=== PATIENT | female | born 1955 | race Hispanic/Latino ===

== ENCOUNTER 2016-12-07 21:37 | Emergency (ER) | payer MEDICARE ==
[2016-12-07 22:30] LABS: Basophils % (Auto) 0.8 % (0.0-1.8); Hematocrit 38.9 % (30.3-42.9); Hemoglobin 13.1 gm/dl (10.1-14.3); Mean Corpuscular HGB Conc 34 % (30-34); Mean Corpuscular Hemoglobin 29 pg (28-32); Mean Corpuscular Volume 85 fl (79-97); Platelet Count 169 K/mm3 (140-440); Red Blood Count 4.57 M/mm3 (3.65-5.03); Red Cell Distribution Width 13.3 % (13.2-15.2); White Blood Count 3.3 K/mm3 (4.5-11.0)
[2016-12-07 22:47] LABS: Anion Gap 17 mmol/L; BUN/Creatinine Ratio 16.66; Blood Urea Nitrogen 10 mg/dL (7-17); Calcium 8.8 mg/dL (8.4-10.2); Carbon Dioxide 25 mmol/L (22-30); Chloride 84.6 mmol/L (98-107); Glucose 94 mg/dL (65-100); Potassium 4.6 mmol/L (3.6-5.0); Sodium 122 mmol/L (137-145)
[2016-12-07 23:02] LABS: Urine Drugs of Abuse Note Disclamer
[2016-12-07 23:10] LABS: Bilirubin,Urine NEG (Negative); Blood,Urine MOD (Negative); Ketones,Urine NEG (Negative); Leukocyte Esterase,Urine NEG (Negative); Mucus,Urine FEW /HPF; Nitrite,Urine NEG (Negative); Protein,Urine <15 mg/dL mg/dL (Negative); Urobilinogen,Urine < 2.0 mg/dL (<2.0)
[2016-12-08] MEDS ORDERED: NACL 0.9% 1000 ML 1,000 ML ONE (01:05)
[2016-12-08] MEDS ORDERED: NACL 0.9% 1000 ML 1,000 ML IV ONE ×2 (01:13→03:12)
--- NOTE | 2016-12-08 03:09 | Emergency Department Report ---
HPI - General Chief Complaint: Psych Time Seen by Provider: 12/08/16 00:49 - HPI HPI: The patient is a 61-year-old female who presents for evaluation of mental health. The patient reports 1 day of constant severe sadness and depression. The patient states that her symptoms were exacerbated due to news that her best friend and next-door neighbor is leaving her penitentiary. The patient denies having a plan to commit suicide. The patient denies fever, headache, unexplained weight loss or weight gain, heat or cold intolerance, skin, hair, or nail changes, neuro deficits, homicidal ideations, or auditory or visual hallucinations. ED Past Medical Hx - Past Medical History Previous Medical History?: Yes Hx Seizures: Yes Hx Psychiatric Treatment: Yes (depression & schizo) Additional medical history: hyperglycemia - Surgical History Past Surgical History?: No - Social History Smoking Status: Never Smoker Substance Use Type: None - Medications Home Medications: Home Medications Medication Instructions Recorded Confirmed Last Taken Type ARIPiprazole [Abilify TAB] 20 mg PO DAILY 07/28/15 12/07/16 10/20/16 History Eslicarbazepine Acetate [Aptiom] 400 mg PO DAILY 07/28/15 12/07/16 10/20/16 History PARoxetine (NF) [Paxil (Nf)] 40 mg PO DAILY 07/28/15 12/07/16 10/20/16 History hydrOXYZINE PAMOATE [hydrOXYzine 25 mg PO DAILY 07/28/15 12/07/16 10/20/16 History Pamoate] lamoTRIgine [LaMICtal Xr] 100 mg PO QDAY 07/28/15 12/07/16 10/20/16 History traZODone [Desyrel] 100 mg PO QHS 07/28/15 12/07/16 10/20/16 History Folic Acid 0.8 mg PO DAILY #0 10/21/16 12/07/16 10/20/16 History Ergocalciferol(Vitamin D2)(Nf) 50,000 unit PO DAILY 12/07/16 12/07/16 Unknown History [Vitamin D (Nf)] Famotidine [Pepcid] 40 mg PO DAILY 12/07/16 12/07/16 Unknown History Levocetirizine Dihydrochloride 5 mg PO DAILY 12/07/16 12/07/16 Unknown History [Xyzal] Omeprazole 40 mg PO DAILY 12/07/16 12/07/16 Unknown History Vit B12/FA/Pyridoxine HCl/Aa15 1 each PO DAILY 12/07/16 12/07/16 Unknown History [Glycotrol Capsule] levETIRAcetam [Keppra TAB] 1,000 mg PO DAILY 12/07/16 12/07/16 Unknown History medroxyPROGESTERone ACETATE 2.5 mg PO QDAY 12/07/16 12/07/16 Unknown History [Provera] ED Review of Systems ROS: Stated complaint: SUICIDAL THOUGHTS/MH EVAL Other details as noted in HPI Constitutional: denies: fever ENT: denies: throat or neck pain Respiratory: denies: cough, shortness of breath Cardiovascular: denies: chest pain Endocrine: denies unexplained weight loss or gain Gastrointestinal: denies: abdominal pain, nausea Genitourinary: denies: dysuria Musculoskeletal: denies: leg swelling Skin: denies: rash Neurological: denies: headache Hematological/Lymphatic: denies: easy bleeding or easy bruising Psych: reports sadness, SI Physical Exam - Physical Exam Vital Signs: Vital Signs 12/07/16 12/07/16 12/07/16 21:50 23:00 23:06 Temperature 98.6 F 98.6 F Pulse Rate 57 L 57 L Respiratory 18 20 20 Rate Blood Pressure 117/65 Blood Pressure 117/65 [Right] O2 Sat by Pulse 97 97 97 Oximetry Physical Exam: General: well-nourished, well-developed, no acute distress Head: Normocephalic, atraumatic Eyes: normal sclera ENT: Mucous membranes are pale and dry Neck: trachea midline, neck supple, No neck stiffness, no cervical adenopathy Respiratory: Breath sounds equal bilaterally, no wheezing, rales, or rhonchi Cardio: S1 and S2 present, no murmurs, rubs, gallops, capillary refill is delayed Abdomen: Normoactive bowel sounds, soft abdomen, no rigidity, no guarding or rebound tenderness Musc: No pitting edema Skin: No rash Neuro: no facial drooping, normal speech Psych: flat affect, depressed mood, positive suicidal ideations ED Course Vital Signs 12/07/16 12/07/16 12/07/16 21:50 23:00 23:06 Temperature 98.6 F 98.6 F Pulse Rate 57 L 57 L Respiratory 18 20 20 Rate Blood Pressure 117/65 Blood Pressure 117/65 [Right] O2 Sat by Pulse 97 97 97 Oximetry ED Medical Decision Making - Lab Data Result diagrams: 12/07/16 22:16 12/07/16 22:16 - Medical Decision Making The patient was seen and examined by myself. The patient is placed on a high school art [employer] and continuous pulse ox. On initial evaluation, the patient was found to be in no distress. IV access is established and the patient is given 1 L normal saline fluid bolus for treatment of dehydration. Labs are obtained. Lab results revealed hyponatremia, sodium 122, and otherwise labs are grossly unremarkable. The patient is given a second liter normal saline fluid bolus for treatment of hyponatremia. The patient is medically clear. Mental health is consulted. Mental health evaluates the patient and agrees that the patient is at risk of harm to self. A 1013 is completed. The patient will be admitted to a psychiatric facility once bed placement is obtained. Critical care attestation.: If time is entered above; I have spent that time in minutes in the direct care of this critically ill patient, excluding procedure time. ED Disposition Clinical Impression: Dehydration, Suicidal ideation, Hyponatremia Depressed Qualifiers: Depression Type: major depressive disorder Major depression recurrence: single episode Active/Remission status: currently active Major depression episode severity: severe Psychotic features: without psychotic features Qualified Code(s ): F32.2 - Major depressive disorder, single episode, severe without psychotic features Disposition: DC/TX PSY HOSP/PSY UNIT Is pt being admited?: No Does the pt Need Aspirin: No Condition: Fair Referrals: PRIMARY CARE [Primary Care Provider] - 3-5 Days Time of Disposition: 02:10
[2016-12-08] MEDS ORDERED: ALUM-MAG HYDROX-SIMETH 200-200-20MG/5ML PO PRN (03:35)
[2016-12-08] MEDS ORDERED: TYLENOL PO PRN (03:35)
[2016-12-08] MEDS ORDERED: MILK OF MAGNESIA PO PRN (03:35)
[2016-12-08] MEDS ORDERED: PYRIDOXINE HCL PO SCH (10:00)
[2016-12-08] MEDS ORDERED: VIT B12 PO SCH (10:00)
[2016-12-08] MEDS ORDERED: NON-FORMULARY (Omeprazole [Omeprazole] 40 MG) PO SCH (10:00)
[2016-12-08] MEDS ORDERED: PEPCID PO SCH (10:00)
[2016-12-08] MEDS ORDERED: LAMOTRIGINE 100 MG PO SCH (10:00)
[2016-12-08] MEDS ORDERED: [UNRECOGNIZED DRUG - OTHER] PO SCH (10:00)
[2016-12-08] MEDS ORDERED: ERGOCALCIFEROL 50000 UNIT PO SCH (10:00)
[2016-12-08] MEDS ORDERED: FOLIC ACID 0.8 MG PO SCH (10:00)
[2016-12-08] MEDS: KEPPRA PO SCH (10:21)
[2016-12-08] MEDS: ABILIFY PO SCH (12:25)
--- NOTE | 2016-12-08 13:50 | Consultation ---
History of Present Illness - Reason for Consult Consult date: 12/08/16 Reason for consult: Mental Health Evaluation Requesting physician: VERONICA SALCIDO - Chief Complaint Chief complaint: "I hear the voices" - History of Present Psychiatric Illness The patient is a 61-year-old female who presents for evaluation of mental health. She patient reports 1 day of constant severe sadness and depression. Today patient is calm, cooperative with a circumstantial thought process. She states she is sad because a friend at her personal senior living was moved. She stated the decision to move her friend made her depressed and suicidal with a plan to use a "knife." She stated that she have had SI's in the past. She tells me that this friend is special to her. Per the patient the voices tell her to "kill myself." Also, patient states that she see shadows currently. She denies HI's at this time. Patient was observed by personal senior living staff banging her head against the wall. She is currently on a gurney. She denies recreational drug use or consumption of alcohol (Etoh). She denies a poor appetite, but states having sleep disturbance. Medications and Allergies Allergies Allergy/AdvReac Type Severity Reaction Status Date / Time Penicillins Allergy Vomiting Verified 07/28/15 20:10 Home Medications Medication Instructions Recorded Confirmed Last Taken Type ARIPiprazole [Abilify TAB] 20 mg PO DAILY 07/28/15 12/07/16 10/20/16 History Eslicarbazepine Acetate [Aptiom] 400 mg PO DAILY 07/28/15 12/07/16 10/20/16 History PARoxetine (NF) [Paxil (Nf)] 40 mg PO DAILY 07/28/15 12/07/16 10/20/16 History hydrOXYZINE PAMOATE [hydrOXYzine 25 mg PO DAILY 07/28/15 12/07/16 10/20/16 History Pamoate] lamoTRIgine [LaMICtal Xr] 100 mg PO QDAY 07/28/15 12/07/16 10/20/16 History traZODone [Desyrel] 100 mg PO QHS 07/28/15 12/07/16 10/20/16 History Folic Acid 0.8 mg PO DAILY #0 10/21/16 12/07/16 10/20/16 History Ergocalciferol(Vitamin D2)(Nf) 50,000 unit PO DAILY 12/07/16 12/07/16 Unknown History [Vitamin D (Nf)] Famotidine [Pepcid] 40 mg PO DAILY 12/07/16 12/07/16 Unknown History Levocetirizine Dihydrochloride 5 mg PO DAILY 12/07/16 12/07/16 Unknown History [Xyzal] Omeprazole 40 mg PO DAILY 12/07/16 12/07/16 Unknown History Vit B12/FA/Pyridoxine HCl/Aa15 1 each PO DAILY 12/07/16 12/07/16 Unknown History [Glycotrol Capsule] levETIRAcetam [Keppra TAB] 1,000 mg PO DAILY 12/07/16 12/07/16 Unknown History medroxyPROGESTERone ACETATE 2.5 mg PO QDAY 12/07/16 12/07/16 Unknown History [Provera] Active Meds: Active Medications Acetaminophen (Tylenol) 650 mg PO Q4HR PRN PRN Reason: Pain MILD(1-3)/Fever >100.5/MARTINEZ Al Hydrox/Mg Hydrox/Simethicone (Alum-Mag Hydrox-Simeth [id number]/5ml) 30 ml PO Q4HR PRN PRN Reason: Indigestion Aripiprazole (Abilify) 20 mg PO DAILY [facility] Last Admin: 12/08/16 12:25 Dose: 20 mg Ergocalciferol (Vitamin D2) 50,000 unit PO [place] [facility] Lamotrigine (Lamictal) 100 mg PO QHS [facility] Levetiracetam (Keppra) 1,000 mg PO DAILY [facility] Last Admin: 12/08/16 10:21 Dose: 1,000 mg Magnesium Hydroxide (Milk Of Magnesia) 30 ml PO Q12HR PRN PRN Reason: Constipation Pantoprazole Sodium (Protonix) 40 mg PO DAILY [facility] Mental Status Exam - Vital signs Last Vital Signs Temp 98.0 F 12/08/16 09:16 Pulse 53 L 12/08/16 09:16 Resp 18 12/08/16 09:17 BP 105/59 12/08/16 09:16 Pulse Ox 99 12/08/16 09:16 - Exam Narrative exam: ROS (+) psychosis MSE: Appearance: calm, cooperative Behavior: good eye contact, irritable Speech: regular rate and tone Mood: "I am not sure" Affect: flat Thought Process: circumstantial Thought Content: denies HI's Motor Activity: sitting in bed Cognition: A/Ox3 Insight: poor Judgment: poor Results Result Diagrams: 12/07/16 22:16 12/07/16 22:16 Abnormal lab results 12/07/16 12/07/16 Range/Units 22:16 22:16 WBC 3.3 L (4.5-11.0) K/mm3 Edwards % (Auto) 10.4 H (0.0-7.3) % Lymph # 1.1 L (1.2-5.4) K/mm3 Sodium 122 L (137-145) mmol/L Chloride 84.6 L (98-107) mmol/L Creatinine 0.6 L (0.7-1.2) mg/dL All other labs normal. Assessment and Plan Assessment and plan: Impression: Unspecified Mood DO with psychotic features. The patient is a 61- year-old female who presents for evaluation of mental health. The patient reports 1 day of constant severe sadness and depression. Today patient is calm, cooperative with a circumstantial thought process. She states she is sad because a friend at her personal senior living was moved. She stated the decision to move her friend made her depressed and suicidal with a plan to use a "knife. " Per the patient the voices tell her to "kill myself." Also, patient states that she see shadows currently. She denies HI's at this time. DD: R/O Bipolar, Adjustment DO with disturbance conduct Recommendation/Plan: Continue 1013 with placement with inpatient psy services. Start Lamictal 25 mg PO HS for mood and Trazodone 50 mg PO HS for depression/ sleep. Discussed possible rash side effect reference Lamictal and possible suicidality and medication induced huber from antidepressants.
[2016-12-08] MEDS ORDERED: LaMICtal PO SCH ×2 (22:00)
[2016-12-08] MEDS ORDERED: DESYREL PO SCH (22:00)
[2016-12-08] MEDS: PROTONIX PO SCH (22:26)
[2016-12-09] MEDS: ABILIFY PO SCH (10:23)
[2016-12-09] MEDS: KEPPRA PO SCH (10:23)
[2016-12-09] MEDS: PROTONIX PO SCH (10:23)
--- NOTE | 2016-12-09 15:23 | Progress Note ---
Subjective - Reason for Consult Consult date: 12/09/16 Reason for consult: psychiatric follow up - Chief Complaint Chief complaint: "I want to go home." The patient is a 61-year-old female who presents for evaluation of mental health. Today patient is calm, cooperative with a circumstantial thought process. She states she was sad because a friend at her personal jail was moved. Now that she's had time to think about it she realizes that she does not want to hurt herself and was saying things impulsively. She realizes she can see her friend who is [address]. She denies suicidal ideation, homicidal ideation, auditory or visual hallucinations. Mental Status Exam - Vital signs Last Vital Signs Temp 97.6 F 12/09/16 09:11 Pulse 66 12/09/16 09:11 Resp 16 12/09/16 09:11 BP 100/59 12/09/16 09:11 Pulse Ox 100 12/09/16 09:11 - Exam Orientation: time, place, person Affect: normal Mood: anxious Thought content: other (no SI, no HI) Thought Process: Intact Perceptions: none Speech: normal rate and pattern Concentration: focused Motor activity: normal Level of consciousness: alert Memory: Intact Sleep Symptoms: None Interaction: cooperative, pleasant Assessment and Plan Impression: Bipolar disorder with psychotic features. The patient is a 61-year- old female who presents for evaluation of mental health. The patient reports 1 day of constant severe sadness and depression. She reports the sadness has resolved. Today patient is calm, cooperative, and focused on going home. She denies AVH, SI, or HI, at this time Recommendation/Plan: Continue 1013 with placement with inpatient psy services. Continue Lamictal 25 mg PO HS for mood and Trazodone 50 mg PO HS for depression/ sleep.
[2016-12-09 20:43] VITALS: BP 91/62
[2016-12-13] MEDS ORDERED: VITAMIN D2 PO SCH (10:00)
== END 2016-12-09 21:50 ==
LOC: ED 21:37 → EEVIPCON 21:37 → ED 12-09 21:50
DX: F32.2 Major depressive disorder, single episode, severe without psychotic features (principal); E86.0 Dehydration; R45.851 Suicidal ideations; E87.1 Hypo-osmolality and hyponatremia; R56.9 Unspecified convulsions; F20.9 Schizophrenia, unspecified
CPT/HCPCS: 36415; 80048; 80307; 81001; 85025; 96360; 96361; 99285; G0480; J7030; 80320

== ENCOUNTER 2016-12-14 22:23 | Emergency (ER) | payer MEDICARE ==
[2016-12-14 23:36] LABS: Basophils % (Auto) 0.5 % (0.0-1.8); Eosinophils % (Auto) 1.6 % (0.0-4.3); Hematocrit 36.9 % (30.3-42.9); Hemoglobin 12.3 gm/dl (10.1-14.3); Mean Corpuscular HGB Conc 33 % (30-34); Mean Corpuscular Hemoglobin 29 pg (28-32); Mean Corpuscular Volume 87 fl (79-97); Platelet Count 193 K/mm3 (140-440); Red Blood Count 4.25 M/mm3 (3.65-5.03); White Blood Count 4.2 K/mm3 (4.5-11.0)
[2016-12-14 23:41] LABS: Anion Gap 16 mmol/L; Blood Urea Nitrogen 15 mg/dL (7-17); Calcium 8.5 mg/dL (8.4-10.2); Carbon Dioxide 24 mmol/L (22-30); Chloride 96.3 mmol/L (98-107); Glucose 93 mg/dL (65-100); Potassium 4.8 mmol/L (3.6-5.0); Sodium 131 mmol/L (137-145)
--- NOTE | 2016-12-15 00:47 | Emergency Department Report ---
ED General Adult HPI - General Chief complaint: Chest Pain Stated complaint: CHEST PAIN Time Seen by Provider: 12/15/16 00:30 Source: EMS (ems notes not available at time of chart dictation), old records reviewed Mode of arrival: Stretcher Limitations: No Limitations - History of Present Illness Initial comments: This is a 61-year-old female. She is previously unknown to me. She has a past medical history of psychiatric disease, seizure disorder. The patient takes Abilify. The patient was recently seen at this hospital, and given medical clearance for psychiatric placement. The patient had a cardiac catheterization at this hospital October 2016, which demonstrated normal coronary arteries, with an ejection fraction of 55%. The patient comes to the ER with multiple complaints. She thinks that she had multiple seizures. She is not certain. She also complains of lower extremity pain bilaterally. She also complains of pain walking. As per discussion with nursing staff at [facility], Ms. Lexis Ball, the patient apparently was found to be hypoglycemic, complaining of weakness, with slow capillary refill. She also complained of chest pain. The patient is a poor historian. She is unable to describe exacerbating or relieving factors. She is not homicidal. She is not suicidal. -: Gradual Location: chest Radiation: non-radiation Severity scale (0 -10): 5 Quality: aching Consistency: intermittent Improves with: none Worsens with: none Associated Symptoms: chest pain, malaise, weakness - Related Data Home Medications Medication Instructions Recorded Confirmed Last Taken ARIPiprazole [Abilify TAB] 20 mg PO DAILY 07/28/15 12/07/16 10/20/16 Eslicarbazepine Acetate [Aptiom] 400 mg PO DAILY 07/28/15 12/07/16 10/20/16 PARoxetine (NF) [Paxil (Nf)] 40 mg PO DAILY 07/28/15 12/07/16 10/20/16 hydrOXYZINE PAMOATE [hydrOXYzine 25 mg PO DAILY 07/28/15 12/07/16 10/20/16 Pamoate] lamoTRIgine [LaMICtal Xr] 100 mg PO QDAY 07/28/15 12/07/16 10/20/16 traZODone [Desyrel] 100 mg PO QHS 07/28/15 12/07/16 10/20/16 Folic Acid 0.8 mg PO DAILY #0 10/21/16 12/07/16 10/20/16 Ergocalciferol(Vitamin D2)(Nf) 50,000 unit PO DAILY 12/07/16 12/07/16 Unknown [Vitamin D (Nf)] Famotidine [Pepcid] 40 mg PO DAILY 12/07/16 12/07/16 Unknown Levocetirizine Dihydrochloride 5 mg PO DAILY 12/07/16 12/07/16 Unknown [Xyzal] Omeprazole 40 mg PO DAILY 12/07/16 12/07/16 Unknown Vit B12/FA/Pyridoxine HCl/Aa15 1 each PO DAILY 12/07/16 12/07/16 Unknown [Glycotrol Capsule] levETIRAcetam [Keppra TAB] 1,000 mg PO DAILY 12/07/16 12/07/16 Unknown medroxyPROGESTERone ACETATE 2.5 mg PO QDAY 12/07/16 12/07/16 Unknown [Provera] Previous Rx's Medication Instructions Recorded Last Taken Type Nitrofurantoin Marshall/M-Cryst 100 mg PO Q12HR #13 capsule 12/15/16 Unknown Rx [Macrobid CAP] Allergies Allergy/AdvReac Type Severity Reaction Status Date / Time Penicillins Allergy Vomiting Verified 12/14/16 22:32 ED Review of Systems ROS: Stated complaint: CHEST PAIN Other details as noted in HPI Constitutional: denies: fever Eyes: denies: eye discharge ENT: denies: epistaxis Respiratory: see HPI Cardiovascular: chest pain Gastrointestinal: denies: nausea Genitourinary: as per HPI Musculoskeletal: arthralgia, myalgia Skin: denies: lesions Neurological: weakness Psychiatric: denies: homicidal thoughts, suicidal thoughts ED Past Medical Hx - Past Medical History Previous Medical History?: Yes Hx Seizures: Yes Hx Psychiatric Treatment: Yes (depression & schizo) Additional medical history: hyperglycemia - Surgical History Past Surgical History?: No - Social History Smoking Status: Never Smoker Substance Use Type: None - Medications Home Medications: Home Medications Medication Instructions Recorded Confirmed Last Taken Type ARIPiprazole [Abilify TAB] 20 mg PO DAILY 07/28/15 12/07/16 10/20/16 History Eslicarbazepine Acetate [Aptiom] 400 mg PO DAILY 07/28/15 12/07/16 10/20/16 History PARoxetine (NF) [Paxil (Nf)] 40 mg PO DAILY 07/28/15 12/07/16 10/20/16 History hydrOXYZINE PAMOATE [hydrOXYzine 25 mg PO DAILY 07/28/15 12/07/16 10/20/16 History Pamoate] lamoTRIgine [LaMICtal Xr] 100 mg PO QDAY 07/28/15 12/07/16 10/20/16 History traZODone [Desyrel] 100 mg PO QHS 07/28/15 12/07/16 10/20/16 History Folic Acid 0.8 mg PO DAILY #0 10/21/16 12/07/16 10/20/16 History Ergocalciferol(Vitamin D2)(Nf) 50,000 unit PO DAILY 12/07/16 12/07/16 Unknown History [Vitamin D (Nf)] Famotidine [Pepcid] 40 mg PO DAILY 12/07/16 12/07/16 Unknown History Levocetirizine Dihydrochloride 5 mg PO DAILY 12/07/16 12/07/16 Unknown History [Xyzal] Omeprazole 40 mg PO DAILY 12/07/16 12/07/16 Unknown History Vit B12/FA/Pyridoxine HCl/Aa15 1 each PO DAILY 12/07/16 12/07/16 Unknown History [Glycotrol Capsule] levETIRAcetam [Keppra TAB] 1,000 mg PO DAILY 12/07/16 12/07/16 Unknown History medroxyPROGESTERone ACETATE 2.5 mg PO QDAY 12/07/16 12/07/16 Unknown History [Provera] Nitrofurantoin Marshall/M-Cryst 100 mg PO Q12HR #13 capsule 12/15/16 Unknown Rx [Macrobid CAP] ED Physical Exam - General Limitations: No Limitations, Physical Limitation General appearance: alert, in no apparent distress - Head Head exam: Present: atraumatic, normocephalic - Eye Eye exam: Present: normal appearance, EOMI. Absent: nystagmus - ENT ENT exam: Present: normal exam, normal orophraynx, mucous membranes moist, normal external ear exam - Neck Neck exam: Present: normal inspection, full ROM. Absent: tenderness, meningismus - Respiratory Respiratory exam: Present: normal lung sounds bilaterally. Absent: respiratory distress, wheezes, rales, rhonchi, stridor, chest wall tenderness, accessory muscle use, decreased breath sounds, prolonged expiratory - Cardiovascular Cardiovascular Exam: Present: regular rate, normal rhythm, normal heart sounds. Absent: bradycardia, tachycardia, irregular rhythm, systolic murmur, diastolic murmur, rubs, gallop - GI/Abdominal GI/Abdominal exam: Present: soft, normal bowel sounds. Absent: distended, tenderness, guarding, rebound, rigid, pulsatile mass - Extremities Exam Extremities exam: Present: normal inspection, full ROM, normal capillary refill , other (the pelvis is stable. The patient moves 4 extremities in response to painful stimuli. The compartments are soft. There is no clonus. There is there is mild bilateral medial knee tenderness.). Absent: pedal edema, joint swelling, calf tenderness - Back Exam Back exam: Present: normal inspection, full ROM. Absent: paraspinal tenderness - Neurological Exam Neurological exam: Present: alert, oriented X3, normal gait (the patient walks with a slow gait with a one-person assist.), other (Extraocular movements intact. Tongue midline. No facial droop. Facial sensation intact to light touch in the V1, V2, V3 distribution bilaterally. 5 and 5 strength in 4 extremities.. Sensation is intact to light touch in 4 extremities.). Absent: motor sensory deficit - Psychiatric Psychiatric exam: Present: flat affect. Absent: homicidal ideation, suicidal ideation - Skin Skin exam: Present: warm, dry, intact, normal color. Absent: rash ED Course Vital Signs 12/14/16 12/14/16 12/14/16 23:08 23:11 23:21 Temperature Pulse Rate 69 68 71 Respiratory 13 15 15 Rate Blood Pressure 111/54 107/58 Blood Pressure [Right] O2 Sat by Pulse 98 99 98 Oximetry 12/14/16 12/14/16 12/14/16 23:30 23:41 23:51 Temperature Pulse Rate 74 72 68 Respiratory 9 L 10 L 15 Rate Blood Pressure 100/54 100/54 105/66 Blood Pressure [Right] O2 Sat by Pulse 98 99 99 Oximetry 12/15/16 12/15/16 12/15/16 00:00 00:11 00:21 Temperature Pulse Rate 61 57 L Respiratory 20 13 8 L Rate Blood Pressure 107/62 107/62 121/65 Blood Pressure [Right] O2 Sat by Pulse 98 99 99 Oximetry 12/15/16 12/15/16 12/15/16 00:30 00:41 01:09 Temperature Pulse Rate 60 61 66 Respiratory 17 18 17 Rate Blood Pressure 124/72 124/72 125/66 Blood Pressure [Right] O2 Sat by Pulse 100 99 Oximetry 12/15/16 12/15/16 12/15/16 01:11 01:21 02:08 Temperature 98.3 F Pulse Rate 57 L Respiratory 14 17 Rate Blood Pressure 125/66 125/66 Blood Pressure [Right] O2 Sat by Pulse 98 99 Oximetry 12/15/16 12/15/16 12/15/16 03:41 03:51 04:00 Temperature Pulse Rate 143 H 64 63 Respiratory 25 H 9 L Rate Blood Pressure 125/66 111/59 107/58 Blood Pressure [Right] O2 Sat by Pulse 98 100 98 Oximetry 12/15/16 12/15/16 12/15/16 05:13 05:21 05:30 Temperature Pulse Rate 59 L 55 L 67 Respiratory 10 L 13 10 L Rate Blood Pressure 111/55 104/56 106/58 Blood Pressure [Right] O2 Sat by Pulse Oximetry 12/15/16 07:15 Temperature 97.8 F Pulse Rate 81 Respiratory 18 Rate Blood Pressure Blood Pressure 112/58 [Right] O2 Sat by Pulse 98 Oximetry - Reevaluation(s) Reevaluation #1: 12/15/16 03:00 Differential diagnosis: Intracranial injury, cervical spine injury, medication side effect, conversion disorder pneumonia, urinary tract infection, pulmonary embolus, breakthrough seizure, fracture, dislocation or pulmonary embolus Assessment and plan: 61-year-old female with complaint of chest pain, weakness, breakthrough seizure, difficulty walking. The patient is alert to name, place and year. She is slow to respond, but does follow commands. She is afebrile rectally. She recently had a cardiac catheterization. This was essentially normal. Of note, the patient moves 4 extremities quite spontaneously in response to painful stimuli. There is no midline spinal tenderness. Noncontrast CT scan of the brain and cervical spine were negative. The patient has had no episodes of seizures while she has been in the emergency department. She has been in the emergency department for quite a while. Serial EKGs did not demonstrate evidence of STEMI. Nonspecific abnormalities is were noted on her EKGs, however given her recent negative cardiac catheterization, I think these can be followed up as an outpatient. EKG showed a borderline rightward axis which appeared to be new. A d-dimer was ordered, but there was a very long time for the d-dimer to be drawn, and subsequently resulted. Therefore, given new rightward axis, history of seizure versus syncope, and chest pain, a CT of the chest is empirically ordered. For the time being, patient will be loaded with her Lamictal. She will also be given Macrobid for presumed urinary tract infection. X-rays of the pelvis, bilateral lower extremities did not demonstrate fracture or dislocation. 12/17/16 20:16 Reevaluation #2: 12/15/16 05:16 CT scan of the chest is negative for acute disease. The patient has been observed in the ER for a prolonged period of time. No episodes of syncope were noted. No episodes of loss of consciousness were noted. Abilify can decrease the seizure threshold. She is instructed to discontinue this medication. She will be discharged with Macrobid. She is medically stable for psychiatric placement at this time. She can follow-up with outpatient cardiology or her primary doctor. ED Medical Decision Making - Lab Data Result diagrams: 12/14/16 22:53 12/14/16 22:53 Vital Signs 12/14/16 12/14/16 12/14/16 23:08 23:11 23:21 Temperature Pulse Rate 69 68 71 Respiratory 13 15 15 Rate Blood Pressure 111/54 107/58 O2 Sat by Pulse 98 99 98 Oximetry 12/14/16 12/14/16 12/14/16 23:30 23:41 23:51 Temperature Pulse Rate 74 72 68 Respiratory 9 L 10 L 15 Rate Blood Pressure 100/54 100/54 105/66 O2 Sat by Pulse 98 99 99 Oximetry 12/15/16 12/15/16 12/15/16 00:00 00:11 00:21 Temperature Pulse Rate 61 57 L Respiratory 20 13 8 L Rate Blood Pressure 107/62 107/62 121/65 O2 Sat by Pulse 98 99 99 Oximetry 12/15/16 12/15/16 12/15/16 00:30 00:41 01:09 Temperature Pulse Rate 60 61 66 Respiratory 17 18 17 Rate Blood Pressure 124/72 124/72 125/66 O2 Sat by Pulse 100 99 Oximetry 12/15/16 12/15/16 12/15/16 01:11 01:21 02:08 Temperature 98.3 F Pulse Rate 57 L Respiratory 14 17 Rate Blood Pressure 125/66 125/66 O2 Sat by Pulse 98 99 Oximetry Labs 12/14/16 12/14/16 12/15/16 22:53 22:53 00:51 WBC 4.2 L RBC 4.25 Hgb 12.3 Hct 36.9 MCV 87 MCH 29 MCHC 33 RDW 13.0 L Plt Count 193 Lymph % (Auto) 23.6 Marshall % (Auto) 10.2 H Eos % (Auto) 1.6 Baso % (Auto) 0.5 Lymph # 1.0 L Marshall # 0.4 Eos # 0.1 Baso # 0.0 Seg Neutrophils % 64.1 Seg Neutrophils # 2.7 Sodium 131 L Potassium 4.8 Chloride 96.3 L Carbon Dioxide 24 Anion Gap 16 BUN 15 Creatinine 0.6 L Estimated GFR > 60 BUN/Creatinine Ratio 25.00 Glucose 93 Calcium 8.5 Troponin T < 0.010 Urine Color Yellow Urine Turbidity Clear Urine pH 6.0 Ur Specific [place] 1.014 Urine Protein <15 mg/dl Urine Glucose (UA) Neg Urine Ketones Neg Urine Blood Mod Urine Nitrite Neg Urine Bilirubin Neg Urine Urobilinogen < 2.0 Ur Leukocyte Esterase Lg Urine WBC (Auto) 15.0 H Urine RBC (Auto) 8.0 U Epithel Cells (Auto) 1.0 Urine Bacteria (Auto) 1+ - EKG Data -: EKG Interpreted by Me EKG shows normal: sinus rhythm Rate: normal - EKG Data 12/15/16 03:08 EKG #1 demonstrates sinus, 63 beats per minute, motion artifact noted, borderline rightward axis, not morphologically consistent with STEMI. QTC 448 ms. EKG #2 demonstrates sinus, 63/m, persistent rightward axis, motion artifact, not morphologically consistent with STEMI. - Radiology Data Radiology results: report reviewed, image reviewed interpreted by me: X-ray the chest is negative for acute disease. X-ray of the pelvis is negative for acute disease. X-ray of the bilateral knees is negative for acute disease. A noncontrast CT scan of the brain is negative. Noncontrast CT scan of the cervical spine is negative. Critical care attestation.: If time is entered above; I have spent that time in minutes in the direct care of this critically ill patient, excluding procedure time. ED Disposition Clinical Impression: Chest pain Disposition: DC/TX PSY HOSP/PSY UNIT Is pt being admited?: No Does the pt Need Aspirin: No Condition: Stable Instructions: Chest Pain (ED) Additional Instructions: Laboratory studies suggested urinary tract infection. CT scan of the head, cervical spine, chest, were negative for acute disease. Patient reported multiple seizures. I recommend that the patient discontinue the Paxil, trazodone, Abilify, as these medications can exacerbate and facilitate seizures. The patient should not drive a car or operate motor vehicles for the next 6 months unless cleared by either her primary care doctor or logistics service representative. I do recommend that the patient follow up with either an outpatient neurologist or neuropsychiatrist to further adjust her medications. Please feel free to return to the ER right away with fevers or chills, chest pain or shortness of breath, intractable nausea or vomiting, inability to tolerate liquid feeds. Cultures were sent today, results will be available next 3-5 days, please have a primary care doctor contact medical records department to obtain culture results. Prescriptions: Nitrofurantoin Marshall/M-Cryst [Macrobid CAP] 100 mg PO Q12HR #13 capsule Referrals: PRIMARY MD MELODIE [Primary Care Provider] - 3-5 Days YUNIER NIEVES MD [Staff Physician] - 3-5 Days ALVARADO RHODES MD [Staff Physician] - 3-5 Days MARIPOSA WRIGHT MD [Staff Physician] - 3-5 Days
[2016-12-15 01:55] LABS: Bacteria,Urine 1+ /HPF (Negative); Bilirubin,Urine NEG (Negative); Blood,Urine MOD (Negative); Ketones,Urine NEG (Negative); Leukocyte Esterase,Urine LG (Negative); Nitrite,Urine NEG (Negative); Protein,Urine <15 mg/dL mg/dL (Negative); Urobilinogen,Urine < 2.0 mg/dL (<2.0)
--- NOTE | 2016-12-15 02:03 | Cat Scan Report ---
FINAL REPORT PROCEDURE: CT HEAD/BRAIN WO CON TECHNIQUE: Computerized tomography of the head was performed without contrast material. HISTORY: fall seizure COMPARISON: No prior studies are available for comparison. FINDINGS: Skull and scalp: Normal. Paranasal sinuses: There is opacification of the left mastoid air cells. Chronic mastoiditis is suspected.. Ventricles and subarachnoid spaces: Normal. Cerebrum: No evidence of hemorrhage, acute infarction or mass . Cerebellum and brainstem: No evidence of hemorrhage, acute infarction or mass. Vasculature: Normal. Comments: None. IMPRESSION: There is no evidence of an acute intracranial process.
--- NOTE | 2016-12-15 02:04 | Cat Scan Report ---
FINAL REPORT PROCEDURE: CT CERVICAL SPINE WO CON TECHNIQUE: Computerized tomography of the cervical spine was performed from the skull base to T1 without contrast material. HISTORY: fall seizure COMPARISON: No prior studies are available for comparison. FINDINGS: The alignment of the vertebral segments is normal. The heights of the vertebral bodies are maintained. Mild loss of disc space height is identified at the C5-6 and C6-7 levels. Mild spur formation off of the vertebral bodies and facet hypertrophy is identified at all levels. The AP spinal canal is maintained at all levels. Mild bilateral neural foramina stenosis is noted at the C5-6 and C6-7 levels. IMPRESSION: There is no evidence of an acute fracture or dislocation of the cervical spine. Mild cervical spondylosis and degenerative disc changes as discussed..
[2016-12-15] MEDS ORDERED: MACROBID PO ONE (02:52)
[2016-12-15] MEDS ORDERED: LaMICtal PO ONE (03:09)
--- NOTE | 2016-12-15 03:12 | XRay Report ---
FINAL REPORT PROCEDURE: XR CHEST 1V AP TECHNIQUE: Chest radiograph anteroposterior view. CPT 87279 HISTORY: cp COMPARISON: No prior studies are available for comparison. FINDINGS: Heart: Normal. Mediastinum/Vessels: Normal. Lungs/Pleural space: Minimal atelectasis bilateral lower lungs. No effusion or pneumothorax. Bony thorax: No acute osseous abnormality. Life support devices: None. IMPRESSION: Mild atelectasis both lower lungs.
--- NOTE | 2016-12-15 03:12 | XRay Report ---
FINAL REPORT PROCEDURE: XR PELVIS 1-2V TECHNIQUE: Pelvis radiograph, AP view. CPT 58198 HISTORY: leg pain fall COMPARISON: No prior studies are available for comparison. FINDINGS: Fracture(s): None . Joint spaces: Normal . Soft tissues: Normal . Foreign bodies: None . Bone mineralization: Normal . IMPRESSION: Normal Examination
--- NOTE | 2016-12-15 03:14 | XRay Report ---
FINAL REPORT PROCEDURE: XR KNEE BILAT 1-2V TECHNIQUE: Bilateral knee radiographs, AP and lateral views. HISTORY: b/l knee pain COMPARISON: No prior studies are available for comparison. FINDINGS: Fracture (s) and/or Dislocation(s): None . Joint space(s): Moderate narrowing of the joint spaces. Slight spur formation off of the osseous structures. Soft tissues: Normal. Bone mineralization: Normal. Foreign bodies: None. IMPRESSION: No acute fracture or dislocation. Moderate arthritis
[2016-12-15] MEDS ORDERED: NACL ONE (03:49)
[2016-12-15] MEDS ORDERED: NACL 0.9% 1000 ML 1,000 ML IV ONE (04:11)
--- NOTE | 2016-12-15 04:39 | Cat Scan Report ---
FINAL REPORT PROCEDURE: CT ANGIO CHEST TECHNIQUE: Computerized tomographic angiography of the chest was performed after the IV injection of iodinated nonionic contrast including image processing. The image data was postprocessed using 2-dimensional multiplanar reformatted (MPR) and 3-dimensional (MIP and/or volume rendered) techniques. HISTORY: cp COMPARISON: 10/18/2008 FINDINGS: Heart and pericardium: Normal. Thoracic aorta: Normal. Pulmonary vasculature: Normal. Lymph nodes: No enlarged thoracic lymph nodes. Lungs: The lungs are clear. No infiltrate or effusion. No pneumothorax.. Pleural space: No effusion, thickening, or pneumothorax. Musculoskeletal structures: No significant abnormality. Upper abdominal structures: No significant abnormality. IMPRESSION: There is no evidence pulmonary arterial emboli. The lungs are clear without infiltrate, effusion or pneumothorax.
[2016-12-15 07:31] VITALS: BP 112/58
== END 2016-12-15 07:32 ==
LOC: ED 22:23
DX: R07.9 Chest pain, unspecified (principal); G40.909 Epilepsy, unspecified, not intractable, without status epilepticus; F32.9 Major depressive disorder, single episode, unspecified; F20.9 Schizophrenia, unspecified
CPT/HCPCS: 36415; 70450; 71010; 71275; 72125; 72170; 73560; 80048; 81001; 82550; 83735; 84484; 85025; 85379; 93005; 93010; 96360; 99285; J7030; Q9967